=== PATIENT | male | born 1995 | race Two or more races ===

== ENCOUNTER 2017-11-21 21:54 | Emergency (ER) | payer BC ==
[~2017-11-21] VITALS: Ht 185.4 cm; Wt 72.6 kg
[2017-11-21 22:26] VITALS: BP 135/83
[2017-11-22] MEDS ORDERED: LET TOPICAL SOLN 5 ML TOP ONE ×2 (00:45→01:00)
[2017-11-22] MEDS ORDERED: cefTRIAXone SOD 1,000 MG VL IM ONE (01:15)
== END 2017-11-22 01:44 | disposition home or self-care (01) ==
LOC: ER 21:54
DX: S61.412A Laceration without foreign body of left hand, initial encounter (principal); W22.01XA Walked into wall, initial encounter; Y93.89 Activity, other specified; Y92.89 Other specified places as the place of occurrence of the external cause; Y99.8 Other external cause status
CPT/HCPCS: 12002; 73130; 96372; 99284; J0696; J3490